=== PATIENT | male | born 1985 | race Asian ===

== ENCOUNTER 2020-03-03 14:34 | Emergency (ER) | payer OTHER ==
[~2020-03-03] VITALS: Ht 170.2 cm; Wt 68.0 kg
[2020-03-03 14:42] VITALS: Ht 170.2 cm; Wt 68.0 kg
[2020-03-03 16:20] VITALS: BP 140/71
== END 2020-03-03 16:20 | disposition home or self-care (01) ==
LOC: ED 14:34
DX: S61.231A Puncture wound without foreign body of left index finger without damage to nail, initial encounter (principal); X58.XXXA Exposure to other specified factors, initial encounter; Y93.89 Activity, other specified; Y92.89 Other specified places as the place of occurrence of the external cause; Y99.8 Other external cause status
CPT/HCPCS: 90715

== ENCOUNTER → 2020-09-13 | Outpatient (REF) ==
--- NOTE | 2020-09-13 15:18 | NUR ---
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
== END | disposition home or self-care (01) ==
LOC: EH 13:30
DX: Z20.828 Contact with and (suspected) exposure to other viral communicable diseases (principal)